=== PATIENT | female | born 1965 | race Caucasian/White ===

== ENCOUNTER 2016-08-09 10:32 | Emergency (ER) | payer SELFPAY ==
[2016-08-09 10:39] VITALS: BP 150/71
--- NOTE | 2016-08-09 11:23 | ED ---
Lower Extremity - HPI Summary HPI Summary: Patient inverted her right ankle and foot 4 weeks ago when her dog knocked her down while running. She didn't have insurance at the time so she babied it and hoped it would improve. The ankle and foot has remained painful with weightbearing and is still swollen. She had bruising over the area which has now resolved. She denies N/T or previous injury. - History of Current Complaint Chief Complaint: EDExtremityLower Stated Complaint: RT FOOT COMPLAINT Time Seen by Provider: 08/09/16 10:53 Hx Obtained From: Patient Mechanism Of Injury: Twisted Onset of Pain: Days Onset/Duration: Still Present - 4 Severity Initially: Moderate Severity Currently: Moderate Pain Intensity: 5 Timing: Constant Location: Is Discrete @ - right ankle/foot Character Of Pain: Dull, Aching, Stiffness Associated Signs And Symptoms: Positive: Swelling Aggravating Factor(s): Standing Alleviating Factor(s): Nothing Able to Bear Weight: Yes - with pain - Allergies/Home Medications Allergies/Adverse Reactions: Allergies Allergy/AdvReac Type Severity Reaction Status Date / Time No Known Allergies Allergy Verified 03/06/14 11:13 PMH/Surg Hx/FS Hx/Imm Hx Endocrine/Hematology History: Denies: Hx Diabetes Cardiovascular History: Denies: Hx Congestive Heart Failure, Hx Hypertension History: Denies: Hx Renal Disease Sensory History: Reports: Hx Contacts or Glasses Opthamlomology History: Reports: Hx Contacts or Glasses Neurological History: Reports: Hx Migraine Psychiatric History: Reports: Hx Depression - Surgical History Surgery Procedure, Year, and Place: HYSTERECTOMY, LEFT SHOULDER FX Infectious Disease History: No Infectious Disease History: Denies: Hx of Known/Suspected MRSA, Hx Shingles, Hx Tuberculosis, History Other Infectious Disease, Traveled Outside the [place] in Last 30 Days - Family History Known Family History: Positive: Other - cancer - Social History Occupation: Unemployed Lives: With Family Alcohol Use: Rare Substance Use Type: Reports: None Smoking Status (MU): Never Smoked Tobacco Review of Systems Positive: Myalgia, Edema Negative: Bruising Negative: Paresthesia, Numbness All Other Systems Reviewed And Are Negative: Yes Physical Exam Triage Information Reviewed: Yes Vital Signs On Initial Exam: Initial Vitals Temp Pulse Resp BP Pulse Ox 98.2 F 70 20 150/71 98 08/09/16 10:36 08/09/16 10:36 08/09/16 10:36 08/09/16 10:36 08/09/16 10:36 Vital Signs Reviewed: Yes Appearance: Positive: Well-Appearing, Well-Nourished, Pain Distress Skin: Positive: Warm, Skin Color Reflects Adequate Perfusion, Dry, Soft Head/Face: Positive: Normal Head/Face Inspection Eyes: Positive: EOMI, JOSEPH, Conjunctiva Clear ENT: Positive: Hearing grossly normal Respiratory/Lung Sounds: Positive: Breath Sounds Present Cardiovascular: Positive: RRR Musculoskeletal: Positive: Limited @ - movement in all planes limited by pain, Pain @ - TTP lateral malleoli, and ATFL, Edema Right - lateral ankle/foot Neurological: Positive: Sensory/Motor Intact, Alert, Oriented to Person Place, Time, NV Bundle Intact Distally, Abnormal Gait Psychiatric: Positive: Affect/Mood Appropriate AVPU Assessment: Alert Diagnostics - Vital Signs Vital Signs Temp Pulse Resp BP Pulse Ox 08/09/16 10:39 98.0 F 71 20 150/71 100 08/09/16 10:36 98.2 F 70 20 150/71 98 - Laboratory Lab Statement: Any lab studies that have been ordered have been reviewed, and results considered in the medical decision making process. - Radiology No standard instances Xray Interpretation: No Acute Changes Radiology Interpretation Completed By: Radiologist Lower Extremity Course/Dx - Diagnoses Differential Diagnosis/HQI/PQRI: Positive: Arthritis, Bursitis, Cellulitis, Contusion, Fracture (Closed), Sprain, Strain Provider Diagnoses: Right ankle sprain Discharge - Discharge Plan Condition: Stable Disposition: HOME Patient Education Materials: Ankle Sprain (ED), Ankle Stirrup Splint (ED) Referrals: No Primary Care Phys,NOPCP [Primary Care Provider] - [facility] [Outside] Additional Instructions: Wear your splint to protect you as your pain improves. Come out of the splint several times daily to perform gentle range of motion exercises to avoid stiffness. Elevate your foot above your heart and apply ice for 20 minutes several times daily to decrease swelling and pain. Use ibuprofen 600mg three times daily with meals for the next 3-5 days to decrease swelling and pain as well. Follow-up with your primary care provider in 7-10 days for evaluation if symptoms persist . Return to the emergency department if your symptoms worsen.
--- NOTE | 2016-08-09 11:44 | RAD ---
INDICATION: Pain and swelling 4 weeks after traumatic injury COMPARISON: None. TECHNIQUE: 3 views of the right ankle were obtained. FINDINGS: The bones are normal alignment. Joint spaces appear maintained. No fracture is seen. IMPRESSION: Normal ankle radiograph. If the patient's symptoms persist, follow-up imaging is recommended.
== END 2016-08-09 12:07 | disposition home or self-care (01) ==
LOC: ED 10:32
DX: S93.401A Sprain of unspecified ligament of right ankle, initial encounter (principal); W54.1XXA Struck by dog, initial encounter; Y93.02 Activity, running; Y92.9 Unspecified place or not applicable; G43.909 Migraine, unspecified, not intractable, without status migrainosus; F32.9 Major depressive disorder, single episode, unspecified; Z90.710 Acquired absence of both cervix and uterus
CPT/HCPCS: 99282

== ENCOUNTER 2017-02-02 12:30 | Emergency (ER) | payer MEDICAID ==
[2017-02-02 12:45] VITALS: BP 150/72
[2017-02-02] MEDS ORDERED: Amoxicillin/Clavulanate TAB* 875 MG PO ONE (13:41)
[2017-02-02] MEDS ORDERED: Ibuprofen TAB* 600 MG PO ONE (13:51)
--- NOTE | 2017-02-02 14:42 | UC ---
Ceferino Neri Gabriel, scribed for Akshat Crespo MD on 02/02/17 at 1338 . Dental HPI - HPI Summary HPI Summary: This patient is a 51 year old F presenting to [facility] with a chief complaint of itching and burning sinuses since 3 days ago. The patient rates the pain 8/10 in severity. Patient reports swelling under right eye and dental pain. Pt states Has had this happen before and has a history of dental issues. - History of Current Complaint Chief Complaint: UCRespiratory Stated Complaint: SWOLLEN FACE, SINUS PRESSURE Time Seen by Provider: 02/02/17 13:32 Hx Obtained From: Patient Onset/Duration: Lasting Days - 3, Still Present Severity: Mild Pain Intensity: 5 Pain Scale Used: 0-10 Numeric Related History: Other - similar issue previously - Allergies/Home Medications Allergies/Adverse Reactions: Allergies Allergy/AdvReac Type Severity Reaction Status Date / Time No Known Allergies Allergy Verified 03/06/14 11:13 PMH/Surg Hx/FS Hx/Imm Hx Previously Healthy: Yes Psychological History: Depression - has been off meds for 3 years - Surgical History Surgical History: Yes Surgery Procedure, Year, and Place: HYSTERECTOMY, LEFT SHOULDER FX - Family History Known Family History: Positive: Other - cancer - Social History Occupation: Unemployed Lives: With Family Alcohol Use: Rare Substance Use Type: None Smoking Status (MU): Never Smoked Tobacco - Immunization History Most Recent Influenza Vaccination: pt unable to recall Most Recent Tetanus Shot: pt unable to recall Most Recent Pneumonia Vaccination: none Review of Systems Constitutional: Negative - fever ENT: Dental Pain, Other - sinus burning and itching, swelling under right eye Is Patient Immunocompromised?: Yes All Other Systems Reviewed And Are Negative: Yes Physical Exam Triage Information Reviewed: Yes Appearance: Well-Appearing, No Pain Distress Vital Signs: Initial Vital Signs Temp 98.6 F 02/02/17 12:42 Pulse 74 02/02/17 12:42 Resp 18 02/02/17 12:42 BP 150/72 02/02/17 12:42 Pulse Ox 99 02/02/17 12:42 Vital Signs Reviewed: Yes Eyes: Positive: Conjunctiva Clear ENT: Positive: Pharynx normal, Other - the patient's right face is with some cellulitis and erythema. No orbital involvement. EOMI without any pain. EYELIDS NORMAL.. Negative: Nasal congestion, Tonsillar swelling, Muffled voice , Hoarse voice Dental: Positive: Abscess @ - Teeth number 1 and 4 right upper with abscess and gingival swelling, tenderness. Dental Complaint Course/Dx - Course Course Of Treatment: 51 yr old with dental abscess, facial swelling/cellulitis. She has gone to [facility] before. Rx with augmentin. DC home. FU with dental. TO ER for any worse swelling, eye pain. - Differential Dx/Diagnosis Provider Diagnoses: dental abscess. facial cellulitis. hypertension Discharge - Discharge Plan Condition: Good Disposition: HOME Prescriptions: Amoxicillin/Clavulanate TAB* [Augmentin TAB 875*] 875 mg PO BID #20 tab Ibuprofen TAB* [Motrin TAB* 600 MG] 600 mg PO Q6H PRN #20 tab PRN Reason: Pain Patient Education Materials: Dental Abscess (ED), Cellulitis (ED), Hypertension (ED), Periorbital Cellulitis in Adults (ED) Referrals: No Primary Care Phys,NOPCP [Primary Care Provider] - [facility] [place] [facility] [Outside] Additional Instructions: [facility] [place] Website Directions [phone] [employer] Dental clinic in [place], [place] Located in: [facility] Address: [address], [place] [address] Hours: Open today 8AM5PM The documentation as recorded by the Ceferino holt Gabriel accurately reflects the service I personally performed and the decisions made by me, Akshat Crespo MD.
== END 2017-02-02 14:02 | disposition home or self-care (01) ==
LOC: UCEAST 12:30
DX: K04.7 Periapical abscess without sinus (principal); L03.211 Cellulitis of face; I10 Essential (primary) hypertension
CPT/HCPCS: 99212; A9270-GY; G0463

== ENCOUNTER 2017-05-28 20:46 | Emergency (ER) | payer MEDICAID, OTHER ==
[2017-05-28 20:58] VITALS: BP 159/95
--- NOTE | 2017-05-28 21:47 | RAD ---
INDICATION: Chest pain COMPARISON: August 28, 2011 TECHNIQUE: PA and lateral dual-energy views were obtained. FINDINGS: Bones/Soft Tissues: There are no acute bony findings. Cardiomediastinal: The cardiomediastinal silhouette is normal. Lungs: There are no infiltrates. Pleura: There are no pleural effusions. Other: None IMPRESSION: NO ACTIVE DISEASE.
--- NOTE | 2017-05-28 21:50 | UC ---
Cardiac HPI - HPI Summary HPI Summary: 52 yo WF c/o B/L ear fullness associated with sinus fullness and ear congestion , also c/o chest pressure and numbness on left arm and it is on and off not constant. Denies h/o HTN or CAD, hyperchol - History of Current Complaint Chief Complaint: UCRespiratory Stated Complaint: EARS PLUGGED, CHEST CONGESTION Time Seen by Provider: 05/28/17 20:57 Hx Obtained From: Patient Onset/Duration: Sudden Onset Current Severity: Moderate Pain Intensity: 3 - Allergy/Home Medications Allergies/Adverse Reactions: Allergies Allergy/AdvReac Type Severity Reaction Status Date / Time No Known Allergies Allergy Verified 05/28/17 20:58 PMH/Surg Hx/FS Hx/Imm Hx Previously Healthy: Yes - Surgical History Surgical History: Yes Surgery Procedure, Year, and Place: HYSTERECTOMY, LEFT SHOULDER FX - Family History Known Family History: Positive: Other - cancer - Social History Alcohol Use: Rare Substance Use Type: None Smoking Status (MU): Former Smoker - Immunization History Most Recent Influenza Vaccination: pt unable to recall Most Recent Tetanus Shot: pt unable to recall Most Recent Pneumonia Vaccination: none Review of Systems Constitutional: Negative Skin: Negative Eyes: Negative ENT: Ear Ache, Sinus Pain/Tenderness Respiratory: Negative Cardiovascular: Negative Gastrointestinal: Negative Genitourinary: Negative Motor: Negative Neurovascular: Negative Musculoskeletal: Negative Neurological: Negative Psychological: Negative All Other Systems Reviewed And Are Negative: Yes Physical Exam Triage Information Reviewed: Yes Appearance: No Pain Distress Vital Signs: Initial Vital Signs Temp 36.3 C 05/28/17 20:50 Pulse 78 05/28/17 20:50 Resp 18 05/28/17 20:50 BP 159/95 05/28/17 20:50 Pulse Ox 99 05/28/17 20:50 Eye Exam: Normal ENT: Positive: Hearing grossly normal, TM red - R>L, Sinus tenderness. Negative : Pharyngeal erythema, Nasal congestion Dental Exam: Normal Neck exam: Normal Neck: Positive: 1 Respiratory: Positive: Lungs clear, No respiratory distress Cardiovascular: Positive: RRR Abdominal Exam: Normal Musculoskeletal Exam: Normal Neurological Exam: Normal Psychological Exam: Normal Skin Exam: Normal - Assessment/Plan Course Of Treatment: CXR neg for infiltrates, EKG WNL, CP suspected to be non- cardiac and arm numbness may be unrelated to current CP. will tx for OM - Differential Diagnoses - Chest Pain Differential Diagnosis/HQI/PQRI: Acute SD, ACS, Chest Wall, GI Disease, Lower Respiratory Infection - Clinical Impression Provider Diagnoses: OM, chestwall pain Discharge - Sign-Out/Discharge Documenting (check all that apply): Discharge - Discharge Plan Condition: Stable Disposition: HOME Prescriptions: Amoxicillin/Clavulanate TAB* [Augmentin TAB 875*] 875 mg PO BID 10 Days #20 tab Referrals: No Primary Care Phys,NOPCP [Primary Care Provider] - - Billing Disposition and Condition Condition: STABLE Disposition: HOME
[2017-05-28] MEDS ORDERED: Amoxicillin/Clavulanate TAB* 500 MG PO ONE (22:03)
== END 2017-05-28 22:15 | disposition home or self-care (01) ==
LOC: UCEAST 20:46
DX: H66.93 Otitis media, unspecified, bilateral (principal); R07.89 Other chest pain; Z87.891 Personal history of nicotine dependence
CPT/HCPCS: 71046; 93005; 99212; A9270-GY; G0463

== ENCOUNTER 2018-10-04 12:40 | Emergency (ER) | payer SELFPAY ==
[2018-10-04 14:38] LABS: ABS Eosinophils 0.5 10^3/ul (0-0.6); ABS Lymphocytes 3.4 10^3/ul (1.0-4.8); ABS Monocytes 0.4 10^3/ul (0-0.8); ABS Neutrophils 3.1 10^3/ul (1.5-7.7); Eosinophil % 7.1 %; Hematocrit 37 % (35-47); Hemoglobin 12.8 g/dL (12.0-16.0); Mean Corpuscular HGB Conc 34 g/dL (31-36); Mean Corpuscular Hemoglobin 32 pg (27-31); Mean Corpuscular Volume 93 fL (80-97); Mean Platelet Volume 8.3 fL (7.4-10.4); Nucleated Red Blood Cells % 0.1; Platelet Count 287 10^3/uL (150-450); Red Blood Count 3.98 10^6 /uL (3.70-4.87); Red Cell Distribution Width 14 % (10-15); White Blood Count 7.6 10^3/uL (3.5-10.8)
--- NOTE | 2018-10-04 14:44 | ED ---
HPI Chest Pain - HPI Summary HPI Summary: This patient is a 53-year-old female presenting to the ED with acute onset chest tightness to the midsternal region which is nonradiating which occurred approximately 2 hours ago when she was cleaning [place] [facility] She denies any radiation of pain. Denies any diaphoresis. Denies any jaw pain or neck pain. She states she had elevated troponins approximate 4 years ago due to some abdominal discomfort, was in the hospital for 4 days and states they did not find anything. She states symptoms currently are rated a 2/10, previously a 6/10. She denies any back pain. Denies any abdominal pain. Denies any headache, visual changes. Symptoms are not worse or better with sitting upright or lying flat, however she does notice a difference when flexing her neck. - History of Current Complaint Chief Complaint: EDChestPainROMI Time Seen by Provider: 10/04/18 14:04 Hx Obtained From: Patient Onset/Duration: Started Hours Ago Timing: Constant Initial Severity: Moderate Current Severity: Moderate Pain Intensity: 7 Pain Scale Used: 0-10 Numeric Chest Pain Location: Mid Sternal Chest Pain Radiates: No Aggravating Factor(s): Nothing Alleviating Factor(s): Nothing Associated Signs and Symptoms: Positive: Negative - Risk Factors Pulmonary Embolism Risk Factors: Negative TAD Risk Factors: Negative - Allergy/Home Medications Allergies/Adverse Reactions: Allergies Allergy/AdvReac Type Severity Reaction Status Date / Time No Known Allergies Allergy Verified 05/28/17 20:58 PMH/Surg Hx/FS Hx/Imm Hx Previously Healthy: Yes Endocrine/Hematology History: Denies: Hx Diabetes Cardiovascular History: Denies: Hx Congestive Heart Failure, Hx Hypertension History: Denies: Hx Renal Disease Sensory History: Reports: Hx Contacts or Glasses Opthamlomology History: Reports: Hx Contacts or Glasses Neurological History: Reports: Hx Migraine Psychiatric History: Reports: Hx Depression - Surgical History Surgery Procedure, Year, and Place: HYSTERECTOMY, LEFT SHOULDER FX - Immunization History Hx Pertussis Vaccination: No Immunizations Up to Date: Yes Infectious Disease History: No Infectious Disease History: Denies: Hx of Known/Suspected MRSA, Hx Shingles, Hx Tuberculosis, History Other Infectious Disease, Traveled Outside the [place] in Last 30 Days - Family History Known Family History: Positive: Other - cancer - Social History Occupation: Employed Full-time Lives: With Family Alcohol Use: Rare Hx Substance Use: No Substance Use Type: Reports: None Hx Tobacco Use: No Smoking Status (MU): Former Smoker Review of Systems Negative: Fever, Chills, Fatigue, Skin Diaphoresis Negative: Blurred Vision, Diplopia Positive: Chest Pain. Negative: Palpitations Negative: Shortness Of Breath, Cough Negative: Arthralgia Skin: Negative Neurological: Negative All Other Systems Reviewed And Are Negative: Yes Physical Exam Triage Information Reviewed: Yes Vital Signs On Initial Exam: Initial Vitals Temp Pulse Resp BP Pulse Ox 98.4 F 76 16 150/75 100 10/04/18 12:45 10/04/18 12:45 10/04/18 12:45 10/04/18 12:45 10/04/18 12:45 Vital Signs Reviewed: Yes Appearance: Positive: Well-Appearing, Well-Nourished Skin: Positive: Warm, Skin Color Reflects Adequate Perfusion Head/Face: Positive: Normal Head/Face Inspection Eyes: Positive: EOMI, Conjunctiva Clear Neck: Positive: Supple Respiratory/Lung Sounds: Positive: Clear to Auscultation, Breath Sounds Present Musculoskeletal: Positive: Strength/ROM Intact, Other - flexion of the neck worsens the pain - palpation throughout the chest wall worsens the pain, no worsening sxs with arm movement Neurological: Positive: Speech Normal Psychiatric: Positive: Normal, Affect/Mood Appropriate AVPU Assessment: Alert Diagnostics - Vital Signs Vital Signs Temp Pulse Resp BP Pulse Ox 10/04/18 12:45 98.4 F 76 16 150/75 100 - Laboratory Lab Results: Lab Results 10/04/18 Range/Units 14:15 WBC 7.6 (3.5-10.8) 10^3/uL RBC 3.98 (3.70-4.87) 10^6 /uL Hgb 12.8 (12.0-16.0) g/dL Hct 37 (35-47) % MCV 93 (80-97) fL MCH 32 H (27-31) pg MCHC 34 (31-36) g/dL RDW 14 (10-15) % Plt Count 287 (150-450) 10^3/uL MPV 8.3 (7.4-10.4) fL Neut % (Auto) 41.5 % Lymph % (Auto) 45.0 % Christian % (Auto) 5.8 % Eos % (Auto) 7.1 % Baso % (Auto) 0.6 % Absolute Neuts (auto) 3.1 (1.5-7.7) 10^3/ul Absolute Lymphs (auto) 3.4 (1.0-4.8) 10^3/ul Absolute Monos (auto) 0.4 (0-0.8) 10^3/ul Absolute Eos (auto) 0.5 (0-0.6) 10^3/ul Absolute Basos (auto) 0.0 (0-0.2) 10^3/ul Absolute Nucleated RBC 0.0 10^3/ul Nucleated RBC % 0.1 Result Diagrams: 10/04/18 14:15 10/04/18 14:15 Lab Statement: Any lab studies that have been ordered have been reviewed, and results considered in the medical decision making process. Chest Pain Course/Dx - Course Course Of Treatment: Treatment, the patient is evaluated for mid sternal chest pain which is nonradiating. She denies any back pain. Denies any headache, visual changes. Denies any fevers, sweats, chills. Symptoms began approximately 3 hours ago and it remained constant, however now dissipated from a 6/10 to a 2/10 on reexamination. Patient denies cardiac disease. Endorses a "tightening" to the midsternal chest. Labs obtained and are unremarkable including a troponin of 0.00. Chest x-ray obtained which shows no acute cardiopulmonary disease. Normal sinus rhythm with no EKG changes. On reexamination, patient is asymptomatic and states she is okay for discharge at this time. Sxs seem to be more muscular as pain is worsened with neck flexion and on slight palpation. She is low risk for Mace, patient will be discharged with close follow-up with her PCP. Patient states she will call her PCP tomorrow for good follow-up. - Chest Pain Differential Diagnosis/HQI/PQRI: Angina, Other: - angina, chest wall pain - Diagnoses Provider Diagnoses: Chest pain Discharge - Sign-Out/Discharge Documenting (check all that apply): Patient Departure Patient Received Moderate/Deep Sedation with Procedure: No - Discharge Plan Condition: Stable Disposition: HOME Patient Education Materials: Angina (ED) Referrals: No Primary Care Phys,NOPCP [Primary Care Provider] - Additional Instructions: As discussed, all your labs and xray on today's visit looked OK Please follow up with PCP If you develop any worsening or changing symptoms, return to the ED - Billing Disposition and Condition Condition: STABLE Disposition: Home
[2018-10-04 14:48] LABS: Albumin/Globulin Ratio 1.4 (1-3); BUN/Creatinine Ratio 19.1 (8-20); EGFR African American 79.7 (>60); EGFR Non-African American 65.8 (>60); Globulin 2.9 g/dL (2-4); Potassium 3.6 mmol/L (3.5-5.0); Total Bilirubin 0.3 mg/dL (0.2-1.0); Total Protein 6.9 g/dL (6.4-8.9)
[2018-10-04 14:55] LABS: INR 0.97 (0.82-1.09)
[2018-10-04 15:41] VITALS: BP 163/84
== END 2018-10-04 15:39 | disposition home or self-care (01) ==
LOC: ED 12:40
DX: R07.9 Chest pain, unspecified (principal); F32.9 Major depressive disorder, single episode, unspecified; Z87.891 Personal history of nicotine dependence
CPT/HCPCS: 36415; 71046; 80053; 84484; 85025; 85610; 93005; 99282

== ENCOUNTER 2019-01-09 17:51 | Emergency (ER) | payer SELFPAY ==
[2019-01-09 18:09] VITALS: BP 153/74
[2019-01-09] MEDS ORDERED: Acetaminophen TAB* 325 MG PO ONE (18:12)
[2019-01-09] MEDS ORDERED: Albuterol/Ipratropium NEB.SOL* Albuterol 2.5 MG/Ipratropium 0.5 MG 3 ML INH ONE (18:34)
--- NOTE | 2019-01-09 18:44 | UC ---
General HPI - HPI Summary HPI Summary: Patient is a 53-year-old female who presents to urgent care stating yesterday she had a little sinus congestion. Patient works as environmental services at the hospital. Patient states she worked today when she was driving home she started to feel unwell. Patient states she had mild nausea, no vomiting. Patient states she developed body aches. Patient states she felt very fatigued. Patient states when she takes a deep breath she felt like it was tight in her chest. No chest pain or shortness of breath at rest. No rash. Mild congestion her sinuses and postnasal drip. Patient did not take anything for her symptoms went home when she did feel better to him here. Patient states she did get the flu shot this year. Patient intermittently smoke cigarettes. Patient denies sick contacts at home. Patient's medications review this visit. She does not take any prescribed or [id number]. no htn, hld, dm - History of Current Complaint Chief Complaint: UCAbdominalPain Stated Complaint: CONGESTED Time Seen by Provider: 01/09/19 18:10 Hx Obtained From: Patient, Medical Records Onset Severity: Moderate Current Severity: Moderate Pain Intensity: 7 - Allergy/Home Medications Allergies/Adverse Reactions: Allergies Allergy/AdvReac Type Severity Reaction Status Date / Time No Known Allergies Allergy Verified 01/09/19 18:09 PMH/Surg Hx/FS Hx/Imm Hx Previously Healthy: Yes - Surgical History Surgical History: Yes Surgery Procedure, Year, and Place: HYSTERECTOMY, LEFT SHOULDER FX - Family History Known Family History: Positive: Other - cancer - Social History Occupation: Employed Full-time Lives: With Family Alcohol Use: Rare Substance Use Type: None Smoking Status (MU): Former Smoker - Immunization History Most Recent Influenza Vaccination: pt unable to recall Most Recent Tetanus Shot: pt unable to recall Most Recent Pneumonia Vaccination: none Review of Systems All Other Systems Reviewed And Are Negative: Yes Constitutional: Positive: Fever, Fatigue Skin: Positive: Negative Eyes: Positive: Negative ENT: Positive: Sinus Congestion Respiratory: Positive: Other - tight with deep breath only Cardiovascular: Positive: Negative Gastrointestinal: Positive: Nausea. Negative: Diarrhea Genitourinary: Positive: Negative Is Patient Immunocompromised?: No Physical Exam - Summary Physical Exam Summary: Vital Signs Reviewed: Yes A+Ox3, no distress Eyes: Conjunctiva Clear, JOSEPH. EOM intact and full ENT: Hearing grossly normal TM x 2 clear, mmoist, uvula midline, no exudate, no erythema Neck: Positive: Supple Respiratory: Positive: No respiratory distress, No accessory muscle use + CTA throughout mild end exp wheeze Cardiovascular: RRR nl s1, s2 no m/r CBT <2 sec abd soft + BS nt/nd no guarding, no distension, no CVA Musculoskeletal Exam: ROBERTSON x 4 without difficulty Strength Intact, ROM Intact Neurological: Positive: Alert, + sensation throughout Psychological: Positive: Normal Response To examiner Skin: Positive: no rash, no ecchymosis Triage Information Reviewed: Yes Vital Signs: Initial Vital Signs Temp 102 F 01/09/19 18:01 Pulse 88 01/09/19 18:01 Resp 16 01/09/19 18:01 BP 153/74 01/09/19 18:01 Pulse Ox 97 01/09/19 18:01 Diagnostics - Radiology No standard instances Radiology Interpretation Completed By: ED Physician - RLL infiltrate - early - EKG Cardiac Rate: NL Cardiac Rhythm: Sinus: Normal ST Segment: Normal EKG Comparison: No Significant Change - 09/2018 Re-Evaluation - Re-Evaluation First Eval Change: Improved - Patient markedly improved following nebulizer. States she's not has tightness. Has releases gone. Did review chest x-ray patient. Concern for early evolving right lower lobe pneumonia. Review this with patient aware we are doing the morning pain was her patient on doxycycline. MDI given here patient has used in the past. Work note written. Patient also given contact information for patchy and encouraged to schedule follow-up. Patient given strict return precautions which is [facility] if symptoms change or worsen. Course/Dx - Course Course Of Treatment: Patient presents to urgent care stating development of mild sinus congestion yesterday. Patient states today she only started to feel ill. Patient H was nauseous had some body aches. Patient I shortness of breath but with a deep inspiration feels tight in her chest. Otherwise patient without chest pain or shortness of breath. No nausea or vomiting. No wheezing. Patient is on no prescribed medications. Vital signs show fever of 102. Patient did not take anything for her temperature today. Otherwise none exam mild and expiratory wheezing but not concerning nontoxic. Will check chest x-ray, urine, EKG was reviewed and non-concerning and influenza. It was compared to one in September with no acute changes. We'll give a DuoNeb and reassessed. Patient comfortable with the plan. Of note, patient did report to the triage nurse that she had angina diagnosed in the ED in September. Review of this record patient had a negative troponin was sent home. Patient did not have any, cardiac evaluation or follow-up with her PCP. Patient denies any exertional chest pain or recurrence since that time she was in the emergency department. - Diagnoses Provider Diagnosis: Fever, PNA (pneumonia) Discharge ED - Sign-Out/Discharge Documenting (check all that apply): Patient Departure All imaging exams completed and their final reports reviewed: No - Discharge Plan Condition: Stable Disposition: HOME Prescriptions: DOXYcycline CAP(*) [DOXYcycline 100MG CAP(*)] 100 mg PO BID #19 cap Patient Education Materials: Fever in Adults (ED), Pneumonia (ED) Forms: *Gen. Provider Communication, *Work Release Referrals: No Primary Care Phys,NOPCP [Primary Care Provider] - [facility] [place] [facility] REFERRAL [Outside] Additional Instructions: -Okay to alternate ibuprofen (Advil, Motrin) and Tylenol (acetaminophen) every 3 hours for pain or fever. Take with food. Do NOT take for more than 4-5 days. - Stay well hydrate. Drink plenty of non alcoholic, non caffeinated beverages. - Plenty of restful sleep - Take antibiotics 2 times a day as prescribed - Use your inhaler - 2 puffs every 4 hours today and tomorrow, then every 4 hours as needed for wheezing - Okay to take [id number] cough and cold medications - Work to decrease cigarette smoke - Contact your primary care doctor to schedule follow-up appointment. If he doesn't have a primary care doctor contact the physician referral center tomorrow to schedule follow-up appointment - If your symptoms change, he developed chest pain, he developed shortness of breath, he unable to control your fever, you have uncontrollable vomiting, or any other concerns is recommended to go immediately to emergency department for further evaluation. You can always call 911 for transfer to emergency department. As discussed, your radiograph was reviewed by the provider that treated you tonight. It will be read by a radiologist tomorrow morning. - Billing Disposition and Condition Condition: STABLE Disposition: Home
[2019-01-09 18:53] LABS: Influenza A Molecular NEGATIVE (Negative); Influenza B Molecular NEGATIVE (Negative)
[2019-01-09] MEDS ORDERED: DOXYcycline CAP(*) 100 MG PO ONE (19:10)
[2019-01-09] MEDS ORDERED: Albuterol HFA INHALER* 8 gm MDI INH ONE (19:11)
--- NOTE | 2019-01-10 08:21 | UC ---
- Progress Note Progress Note: Reviewed record: started doxycycline yesterday for treatment of RLL pneumonia per wet read. Per Dr. Gregorio: lungs with hyperinflation. Please let patient know that no pneumonia diagnosed by chest xray but should continue full course of antibiotic treatment. Patient Name: DELORIS SALDANA Medical Record#: [id number] Ordering Physician: Ivonne Vernon MD Acct.#: [id number] : 1965 Age: 53 Sex: F Location: [facility] Exam Date: 01/09/191833 ADM Status: DEP ER Order Information: CHEST PA & LAT 2 VWS Accession Number: [id number] CPT: 34517 HISTORY: cough, fever COMPARISONS: October 04, 2018 VIEWS: 4: Frontal dual-energy and lateral views of the chest. FINDINGS: CARDIOMEDIASTINAL SILHOUETTE: The cardiomediastinal silhouette is normal. OSWALDO: The oswaldo are normal. PLEURA: The costophrenic angles are sharp. No pleural abnormalities are noted. LUNG PARENCHYMA: There is hyperinflation with flattening of the diaphragm and expansion of the AP diameter of the chest. The "early right lower lobe pneumonia" noted on the preliminary assessment is not appreciated on the submitted images. ABDOMEN: The upper abdomen is clear. There is no subphrenic gas. BONES AND SOFT TISSUES: No bone or soft tissue abnormalities are noted. OTHER: None. IMPRESSION: HYPERINFLATION. NO ACTIVE CARDIOPULMONARY DISEASE. R2 Preliminary Imaging Read R2 <Electronically signed by Wing Gregorio MD in [place]> 01/10/19742 Dictated By: Wing Gregorio MD Dictated Date/Time: 01/10/19740 Transcribed Date/Time: 01/10/19740 Copy to: CC:Ivonne Vernon MD; No Primary Care Phys,NOPCP Imaging - [facility] Imaging - [facility] Imaging - [facility] [address] [address] This report is only to be considered final once signed by the Provider(s) as displayed in the "<Electronically Signed by >" field (s). Absence of a signature indicates the report is in a draft status and still needs to be finalized. In the event this document was created by someone other than the signing Provider, the individual initiating the document will be listed in the "Entered by:" or "Dictated by:" harrison. 1 of 2 Course/Dx - Diagnoses Provider Diagnoses: Fever, PNA (pneumonia) Discharge ED - Sign-Out/Discharge Documenting (check all that apply): Post-Discharge Follow Up All imaging exams completed and their final reports reviewed: Yes - Discharge Plan Condition: Stable Disposition: HOME Prescriptions: DOXYcycline CAP(*) [DOXYcycline 100MG CAP(*)] 100 mg PO BID #19 cap Patient Education Materials: Fever in Adults (ED), Pneumonia (ED) Forms: *Gen. Provider Communication, *Work Release Referrals: [facility] [place] [facility] REFERRAL [Outside] No Primary Care Phys,NOPCP [Primary Care Provider] - Additional Instructions: -Okay to alternate ibuprofen (Advil, Motrin) and Tylenol (acetaminophen) every 3 hours for pain or fever. Take with food. Do NOT take for more than 4-5 days. - Stay well hydrate. Drink plenty of non alcoholic, non caffeinated beverages. - Plenty of restful sleep - Take antibiotics 2 times a day as prescribed - Use your inhaler - 2 puffs every 4 hours today and tomorrow, then every 4 hours as needed for wheezing - Okay to take [id number] cough and cold medications - Work to decrease cigarette smoke - Contact your primary care doctor to schedule follow-up appointment. If he doesn't have a primary care doctor contact the physician referral center tomorrow to schedule follow-up appointment - If your symptoms change, he developed chest pain, he developed shortness of breath, he unable to control your fever, you have uncontrollable vomiting, or any other concerns is recommended to go immediately to emergency department for further evaluation. You can always call 911 for transfer to emergency department. As discussed, your radiograph was reviewed by the provider that treated you tonight. It will be read by a radiologist tomorrow morning. - Billing Disposition and Condition Condition: STABLE Disposition: Home
== END 2019-01-09 19:24 | disposition home or self-care (01) ==
LOC: UCEAST 17:51
DX: J18.9 Pneumonia, unspecified organism (principal); R50.9 Fever, unspecified; R91.8 Other nonspecific abnormal finding of lung field; Z87.891 Personal history of nicotine dependence
CPT/HCPCS: 71046; 81003; 93005; 99213; A9270-GY; G0463

== ENCOUNTER 2019-01-23 11:36 | Emergency (ER) | payer SELFPAY ==
[2019-01-23 12:09] VITALS: BP 166/91
[2019-01-23] MEDS ORDERED: Ketorolac INJ* 30 MG/ML 1 ML VIAL IM ONE (12:32)
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
== END 2019-01-23 12:50 | disposition home health service (06) ==
LOC: UCEAST 11:36
DX: L03.211 Cellulitis of face (principal); I10 Essential (primary) hypertension; F17.210 Nicotine dependence, cigarettes, uncomplicated
CPT/HCPCS: 96372; 99212; G0463; J1885

== ENCOUNTER 2019-01-23 13:37 | Emergency (ER) | payer SELFPAY ==
--- NOTE | 2019-01-23 13:56 | ED ---
Throat Pain/Nasal Congestion - HPI Summary HPI Summary: 53-year-old female significant past medical history of angina reports the emergency department today complaining of right facial swelling which began this morning. She states she began having mild swelling and pain yesterday below her right eye but when she awoke this morning she noticed significant swelling below her right eye as well as swelling to her right cheek. She states she had 10 out of 10 pain this morning when she decided to go to urgent care. She was sent from urgent care to here in order to have a CT scan done to rule out pathology. Prior to Arrival she was given IM Toradol at urgent care which significantly reduced her pain. She denies fever, chest pain, chills, abdominal pain, trouble swallowing, dental pain, changes in vision, ear pain, diarrhea, nausea, vomiting, rash. - History of Current Complaint Chief Complaint: EDDentalPain Time Seen by Provider: 01/23/19 13:38 Hx Obtained From: Patient Onset/Duration: Gradual Onset Severity: Severe Associated Signs And Symptoms: Positive: Sinus Discomfort Cough: None - Allergies/Home Medications Allergies/Adverse Reactions: Allergies Allergy/AdvReac Type Severity Reaction Status Date / Time No Known Allergies Allergy Verified 01/23/19 12:08 PMH/Surg Hx/FS Hx/Imm Hx Endocrine/Hematology History: Denies: Hx Diabetes, Hx Thyroid Disease Cardiovascular History: Reports: Other Cardiovascular Problems/Disorders - angina Denies: Hx Congestive Heart Failure, Hx Hypertension Respiratory History: Denies: Hx Asthma, Hx Chronic Obstructive Pulmonary Disease (COPD) GI History: Denies: Hx Ulcer History: Denies: Hx Renal Disease Sensory History: Reports: Hx Contacts or Glasses Opthamlomology History: Reports: Hx Contacts or Glasses Neurological History: Reports: Hx Migraine Psychiatric History: Reports: Hx Depression - Surgical History Surgery Procedure, Year, and Place: HYSTERECTOMY, LEFT SHOULDER FX - Immunization History Date of Influenza Vaccine: 11/2018 Immunizations Up to Date: Yes Infectious Disease History: No Infectious Disease History: Denies: Hx Hepatitis, Hx Human Immunodeficiency Virus (HIV), Hx of Known/ Suspected MRSA, Hx Shingles, Hx Tuberculosis, History Other Infectious Disease, Traveled Outside the [place] in Last 30 Days - Family History Known Family History: Positive: Other - cancer - Social History Alcohol Use: Rare Hx Substance Use: No Substance Use Type: Reports: None Hx Tobacco Use: Yes Smoking Status (MU): Heavy Every Day Tobacco Smoker Amount Used/How Often: a few cig per day Review of Systems Constitutional: Negative Eyes: Negative ENT: Negative Cardiovascular: Negative Respiratory: Negative Gastrointestinal: Negative Genitourinary: Negative Positive: other Skin: Negative Neurological: Negative Psychological: Normal All Other Systems Reviewed And Are Negative: Yes Physical Exam - Summary Physical Exam Summary: Inspection reveals significant swelling to the right cheek and inferior to the right eye in the area of the tear duct. There is erythema noted overlying the tear duct as well as the right cheek. Palpation reveals soft nontender areas of edema to the right side of the face. There is no significant increase in warmth to the skin on the right side of the face. EOMI is intact and she has no pain with extraocular muscle movement. There is no discharge noted from the tear duct or nares bilaterally. No tenderness with percussion of frontal and maxillary sinuses. Triage Information Reviewed: Yes Vital Signs On Initial Exam: Initial Vitals Temp Pulse Resp BP Pulse Ox 97.4 F 75 16 156/98 99 01/23/19 13:39 01/23/19 13:39 01/23/19 13:39 01/23/19 13:39 01/23/19 13:39 Vital Signs Reviewed: Yes Appearance: Positive: Well-Appearing, No Pain Distress, Well-Nourished Skin: Positive: Warm, Skin Color Reflects Adequate Perfusion Eyes: Positive: EOMI, JOSEPH, Conjunctiva Clear ENT: Positive: Hearing grossly normal, Pharynx normal, TMs normal Dental: Positive: Other - Dentition in poor repair with significant erosion.. Negative: Percussion Tenderness @ Neck: Positive: Nontender Respiratory/Lung Sounds: Positive: Clear to Auscultation, Breath Sounds Present Cardiovascular: Positive: RRR, S1, S2 Abdomen Description: Positive: Soft Bowel Sounds: Positive: Present Musculoskeletal: Positive: Strength/ROM Intact Neurological: Positive: Sensory/Motor Intact, Alert, Oriented to Person Place, Time, Normal Gait, Speech Normal Psychiatric: Positive: Normal AVPU Assessment: Alert Procedures - Sedation Patient Received Moderate/Deep Sedation with Procedure: No Diagnostics - Vital Signs Vital Signs Temp Pulse Resp BP Pulse Ox 01/23/19 13:39 97.4 F 75 16 156/98 99 - Laboratory Result Diagrams: 01/23/19 14:33 01/23/19 14:33 Lab Statement: Any lab studies that have been ordered have been reviewed, and results considered in the medical decision making process. EENT Course/Dx - Course Course Of Treatment: Patient was evaluated in the emergency department today for right-sided facial pain. Patient was seen and examined her vitals are stable and she is afebrile. Labs returned showing leukocytosis with a white blood cell count of 15.1. There is a left shift with an absolute count of 12.7. CRP is 11.00 which is elevated. No evidence of anemia. Patient is mildly hypokalemic with a potassium 3.3 however all other electrolytes are within normal limits. CT of the sinuses reveals right facial cellulitis centered about the right buccal fat pad with extension to the right malar eminence and a right inferior eyelid. There is no orbital inflammation. There is no drainable fluid collection identified. The oral cavity is partially endentulous. Untreated dental or periodontal disease involves nearly every remaining maxillary tooth. The mandibular teeth are poorly imaged. Moderate paranasal sinus mucosal thickening predominating along the anterior drainage pathways bilaterally. The right maxillary disease is likely odontogenic. CT scan and lab studies are consistent with right facial cellulitis likely caused from dental infection. Patient was given 1 g of IM ceftriaxone and 1 dose of Augmentin 875 here in the emergency department. She is also given a prescription for Augmentin 875 twice a day 7 days to be taken as an outpatient. She is to take ibuprofen for pain. She is to follow-up with a dentist for evaluation of this dental infection. Patient agrees with this plan. - Differential Diagnoses Differential Diagnoses: Cellulitis, Dental Caries, Gingivitis, Periorbital/ Orbital Cellulitis, Sinusitis, Other - Dacryocystitis, dacryoadenitis - Diagnoses Provider Diagnoses: Cellulitis of face, Dental infection Discharge ED - Sign-Out/Discharge Documenting (check all that apply): Patient Departure - Discharge Plan Condition: Stable Disposition: HOME Prescriptions: Amoxicillin/Clavulanate TAB* [Augmentin TAB 875*] 875 mg PO BID #14 tab Patient Education Materials: Dental Abscess (ED), Cellulitis (ED) Referrals: No Primary Care Phys,NOPCP [Primary Care Provider] - Care [facility] [Outside] - 2 Days Additional Instructions: You were seen in the emergency department and diagnosed with facial cellulitis likely due to a dental infection. You were Given a dose of antibiotics in the emergency department, but please go to your pharmacy and [employer] your prescription for antibiotics. Take one tablet of Augmentin 875 mg every 12 hours for 7 days for resolution of your infection. It is very important that you follow up with a dentist to be able to drain possible dental abscess which likely caused a facial cellulitis. You may take ibuprofen for pain as needed 600 mg every 6 hours for one week. Please follow-up with with your primary care provider or [facility] if you are unable to get into see a dentist. Please return to the emergency department immediately if you develop any new or worsening symptoms. I have attached information for dental care referrals. - Billing Disposition and Condition Condition: STABLE Disposition: Home
[2019-01-23 14:40] LABS: ABS Eosinophils 0.1 10^3/ul (0-0.6); ABS Lymphocytes 1.7 10^3/ul (1.0-4.8); ABS Monocytes 0.5 10^3/ul (0-0.8); ABS Neutrophils 12.7 10^3/ul (1.5-7.7); Eosinophil % 0.9 %; Hematocrit 39 % (35-47); Hemoglobin 13.4 g/dL (12.0-16.0); Lymphocyte % 11.1 %; Mean Corpuscular HGB Conc 34 g/dL (31-36); Mean Corpuscular Hemoglobin 32 pg (27-31); Mean Corpuscular Volume 93 fL (80-97); Mean Platelet Volume 7.9 fL (7.4-10.4); Platelet Count 278 10^3/uL (150-450); Red Blood Count 4.22 10^6 /uL (3.70-4.87); Red Cell Distribution Width 13 % (10-15); White Blood Count 15.1 10^3/uL (3.5-10.8)
[2019-01-23] MEDS ORDERED: cefTRIAXone(*) 1 GM in NS 0.9% 50 ML* 50 ML IVPB ONE (14:54)
[2019-01-23] MEDS ORDERED: Amoxicillin/Clavulanate TAB* 875 MG PO ONE (14:55)
[2019-01-23 14:58] LABS: Albumin 4.1 g/dL (3.2-5.2); Albumin/Globulin Ratio 1.2 (1-3); BUN/Creatinine Ratio 12.2 (8-20); Calcium 9.4 mg/dL (8.6-10.3); EGFR African American 87.6 (>60); EGFR Non-African American 72.4 (>60); Globulin 3.4 g/dL (2-4); Potassium 3.3 mmol/L (3.5-5.0); Total Bilirubin 0.4 mg/dL (0.2-1.0); Total Protein 7.5 g/dL (6.4-8.9)
[2019-01-23] MEDS ORDERED: cefTRIAXone VIAL(*) 1,000 MG VIAL IM ONE (15:15)
[2019-01-23] MEDS ORDERED: Lidocaine 1% MPF ** 5 ML VIAL IM ONE (15:15)
[2019-01-23] MEDS ORDERED: Lidocaine 1% MPF ** 5 ML VIAL ONE (15:16)
[2019-01-23] MEDS ORDERED: cefTRIAXone VIAL(*) 1,000 MG VIAL ONE (15:16)
[2019-01-23 15:26] VITALS: BP 131/78
== END 2019-01-23 15:30 | disposition home or self-care (01) ==
LOC: ED 13:37
DX: L03.211 Cellulitis of face (principal); K04.7 Periapical abscess without sinus; F32.9 Major depressive disorder, single episode, unspecified; F17.210 Nicotine dependence, cigarettes, uncomplicated; Z90.710 Acquired absence of both cervix and uterus
CPT/HCPCS: 36415; 70486; 80053; 84702; 85025; 86140; 96372; 99282; A9270-GY; J0696

== ENCOUNTER 2019-04-08 19:10 | Emergency (ER) | payer SELFPAY ==
[2019-04-08 19:21] VITALS: BP 154/90
--- NOTE | 2019-04-08 19:23 | UC ---
Throat Pain/Nasal Ronni HPI - HPI Summary HPI Summary: 54 yo female presents with sinus symptoms. She tells me that over the last week she has had sinus pain/pressure/congestion with post nasal drip. Over the last few days has had a right earache and popping. She has been taking mucinex and OTC cold medicine with no relief. Denies fever, chills, cough, SOB, n/v - History of Current Complaint Chief Complaint: UCGeneralIllness Stated Complaint: SINUS CONGESTION Time Seen by Provider: 04/08/19 19:22 Hx Obtained From: Patient Onset/Duration: Gradual Onset Severity: Moderate Pain Intensity: 6 Pain Scale Used: 0-10 Numeric - Allergies/Home Medications Allergies/Adverse Reactions: Allergies Allergy/AdvReac Type Severity Reaction Status Date / Time No Known Allergies Allergy Verified 04/08/19 19:23 Home Medications: Home Medications Guaifen/Phenyleph/Acetaminophn [Severe Sinus Congest-Pain Cplt] 2 each PO Q6H [History Confirmed 04/08/19] Ibuprofen TAB* [Motrin TAB* 800 MG] 800 mg PO ONCE 04/08/19 [History Confirmed 04/08/19] PMH/Surg Hx/FS Hx/Imm Hx - Additional Past Medical History Additional PMH: None - Surgical History Surgical History: Yes Surgery Procedure, Year, and Place: HYSTERECTOMY, LEFT SHOULDER FX - Family History Known Family History: Positive: Other - cancer - Social History Lives: With Family Alcohol Use: Rare Substance Use Type: None Smoking Status (MU): Light Every Day Tobacco Smoker Amount Used/How Often: a few cig per day - Immunization History Most Recent Influenza Vaccination: pt unable to recall Most Recent Tetanus Shot: pt unable to recall Most Recent Pneumonia Vaccination: none Review of Systems All Other Systems Reviewed And Are Negative: No Constitutional: Positive: Negative Skin: Positive: Negative Eyes: Positive: Negative ENT: Positive: Ear Ache, Nasal Discharge, Sinus Congestion, Sinus Pain/ Tenderness Respiratory: Positive: Negative Cardiovascular: Positive: Negative Gastrointestinal: Positive: Negative Neurological/Mental Status: Positive: Negative Psychological: Positive: Negative Physical Exam - Summary Physical Exam Summary: GENERAL: NAD. WDWN. No pain distress. SKIN: No rashes, sores, lesions, or open wounds. HEENT: Head: AT/NC Eyes: EOM intact. Conjunctiva clear without inflammation or discharge. Ears: Hearing grossly normal. TMs intact, no bulging, erythema, or edema. Nose: Nasal mucosa pink and moist without discharge. TTP maxillary and frontal sinus. Throat: Posterior oropharynx without exudates, erythema, or tonsillar enlargement. Uvula midline. NECK: Supple. Nontender. No lymphadenopathy. CHEST: CTAB. No r/r/w. No accessory muscle use. Breathing comfortably and in no distress. CV: RRR. Pulses intact. Cap refill <2seconds NEURO: Alert. PSYCH: Age appropriate behavior. Triage Information Reviewed: Yes Vital Signs: Initial Vital Signs Temp 97.9 F 04/08/19 19:17 Pulse 67 04/08/19 19:17 Resp 16 04/08/19 19:17 BP 154/90 04/08/19 19:17 Pulse Ox 100 04/08/19 19:17 Vital Signs Reviewed: Yes Throat Pain/Nasal Course/Dx - Course Course Of Treatment: Sinusitis - Differential Dx/Diagnosis Provider Diagnosis: Sinusitis Discharge ED - Sign-Out/Discharge Documenting (check all that apply): Patient Departure All imaging exams completed and their final reports reviewed: No Studies - Discharge Plan Condition: Stable Disposition: HOME Prescriptions: Amoxicillin PO (*) [Amoxicillin 875 MG (*)] 875 mg PO BID #14 tab Patient Education Materials: Sinusitis (ED) Referrals: No Primary Care Phys,NOPCP [Primary Care Provider] - Additional Instructions: If you develop a fever, shortness of breath, chest pain, new or worsening symptoms - please call your PCP or go to the ED immediately. Your blood pressure was high at todays visit. Please see your primary provider within 4 weeks for recheck and re-evaluation. - Billing Disposition and Condition Condition: STABLE Disposition: Home
== END 2019-04-08 19:35 | disposition home or self-care (01) ==
LOC: UCEAST 19:10
DX: J32.9 Chronic sinusitis, unspecified (principal); F17.210 Nicotine dependence, cigarettes, uncomplicated
CPT/HCPCS: 99212; G0463

== ENCOUNTER 2019-04-26 09:52 | Emergency (ER) | payer SELFPAY ==
[2019-04-26] MEDS ORDERED: Ondansetron INJ* 2 MG/ML VIAL IV ONE (11:12)
[2019-04-26] MEDS ORDERED: NS 0.9% 1000 ML** 1,000 ML IV ONE (11:12)
--- NOTE | 2019-04-26 11:14 | ED ---
Abdominal Pain/Female - HPI Summary HPI Summary: Pt. is a 54 y.o female who presents to the ER for vomiting, diarrhea and abd. pain since yesterday. 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 Notes epigastric pain. Denies cp, sob, fever. Sxs are moderate in severity. No current modifying factors. - History of Current Complaint Chief Complaint: EDNauseaVomitDiarrh Stated Complaint: NAUSEA/STOMACH CRAMPS PER PT Time Seen by Provider: 04/26/19 11:01 Hx Obtained From: Patient Pain Intensity: 8 Allergies/Adverse Reactions: Allergies Allergy/AdvReac Type Severity Reaction Status Date / Time No Known Allergies Allergy Verified 04/08/19 19:23 Home Medications: Home Medications Acetaminophen [Mapap] 1,000 mg PO TID PRN 01/23/19 [History Confirmed 04/26/19] Prochlorperazine 10 mg TAB [Compazine 10 mg TAB] 10 mg PO Q6H PRN #12 tab [Rx] PMH/Surg Hx/FS Hx/Imm Hx Previously Healthy: Yes Endocrine/Hematology History: Denies: Hx Diabetes, Hx Thyroid Disease Cardiovascular History: Reports: Other Cardiovascular Problems/Disorders - angina Denies: Hx Congestive Heart Failure, Hx Hypertension Respiratory History: Denies: Hx Asthma, Hx Chronic Obstructive Pulmonary Disease (COPD) GI History: Denies: Hx Ulcer History: Denies: Hx Renal Disease Sensory History: Reports: Hx Contacts or Glasses Opthamlomology History: Reports: Hx Contacts or Glasses Neurological History: Reports: Hx Migraine Psychiatric History: Reports: Hx Depression - Surgical History Surgery Procedure, Year, and Place: HYSTERECTOMY, LEFT SHOULDER FX - Immunization History Date of Influenza Vaccine: 11/2018 Infectious Disease History: No Infectious Disease History: Denies: Hx Hepatitis, Hx Human Immunodeficiency Virus (HIV), Hx of Known/ Suspected MRSA, Hx Shingles, Hx Tuberculosis, History Other Infectious Disease, Traveled Outside the [place] in Last 30 Days - Family History Known Family History: Positive: Other - cancer, Non-Contributory - Social History Occupation: Employed Full-time Lives: With Family Alcohol Use: Rare Hx Substance Use: No Substance Use Type: Reports: None Hx Tobacco Use: Yes Smoking Status (MU): Light Every Day Tobacco Smoker Amount Used/How Often: a few cig per day Review of Systems Constitutional: Negative Negative: Fever ENT: Negative Cardiovascular: Negative Respiratory: Negative Positive: Abdominal Pain, Vomiting, Diarrhea Genitourinary: Negative Neurological/Mental Status: Negative All Other Systems Reviewed And Are Negative: Yes Physical Exam Triage Information Reviewed: Yes Vital Signs On Initial Exam: Initial Vitals Temp Pulse Resp BP Pulse Ox 98.6 F 64 16 153/94 98 04/26/19 10:04 04/26/19 10:04 04/26/19 10:04 04/26/19 10:04 04/26/19 10:04 Vital Signs Reviewed: Yes Appearance: Positive: Well-Appearing Skin: Positive: Warm, Dry Head/Face: Positive: Normal Head/Face Inspection - Pt. lying in bed in NAD. Eyes: Positive: Normal, EOMI Neck: Positive: Supple Respiratory/Lung Sounds: Positive: Clear to Auscultation, Breath Sounds Present Cardiovascular: Positive: Normal, RRR Abdomen Description: Positive: Other: - Abd. is soft with epigastric tenderness. No guarding or rebound tenderness. Neurological: Positive: Normal, CN Intact II-III Psychiatric: Positive: Affect/Mood Appropriate Procedures - Sedation Patient Received Moderate/Deep Sedation with Procedure: No Diagnostics - Vital Signs Vital Signs Temp Pulse Resp BP Pulse Ox 04/26/19 11:06 64 160/95 98 04/26/19 11:02 57 188/84 98 04/26/19 11:00 68 98 04/26/19 10:04 98.6 F 64 16 153/94 98 - Laboratory Result Diagrams: 04/26/19 11:17 04/26/19 11:17 Lab Statement: Any lab studies that have been ordered have been reviewed, and results considered in the medical decision making process. Abdominal Pain Fem Course/Dx - Course Course Of Treatment: Pt. with V/D and abd. pain. Afebrile. Given iv fluids and zofran. ECG done at 1118 shows a sinus rhythm of 60bpm, normal axis, QTc mildly prolonged, no STEMI. Labs unremarkable other than mildly low K. On re- exam pt. feeling better. Tolerating POs. Susupect viral in nature. PO K given. DC home with compazine. WIll f.u with pcp and return to er if sxs chagne or worsen. - Diagnoses Differential Diagnosis: Positive: Appendicitis, Bowel Obstruction, Constipation , Diverticulitis Provider Diagnoses: Vomiting and diarrhea Discharge ED - Sign-Out/Discharge Documenting (check all that apply): Patient Departure - Discharge Plan Condition: Improved Disposition: HOME Prescriptions: Prochlorperazine 10 mg TAB [Compazine 10 mg TAB] 10 mg PO Q6H PRN #12 tab PRN Reason: Nausea Patient Education Materials: Gastroenteritis (ED), Kidney Cyst (ED) Forms: *Work Release Referrals: [facility] [Outside] [facility] [place] [place] [facility] [Outside] Additional Instructions: Schedule a follow up appointment with the [facility] if symptoms persist Nausea medication as directed Increase fluids Return to ER for uncontrollable vomiting, increased pain or if concerned - Billing Disposition and Condition Condition: IMPROVED Disposition: Home - Attestation Statements Provider Attestation: I was available for consultation for this patient. I did not evaluate the patient or participate in any medical decision making or disposition decisions unless I am specifically named in the chart as having consulted on the patient. If I have consulted on the patient, please see my own ED note on the patient encounter. Juanjo Fan MD
[2019-04-26 11:33] LABS: ABS Eosinophils 0.4 10^3/ul (0-0.6); ABS Lymphocytes 2.8 10^3/ul (1.0-4.8); ABS Monocytes 0.4 10^3/ul (0-0.8); ABS Neutrophils 2.9 10^3/ul (1.5-7.7); Eosinophil % 5.7 %; Hematocrit 35 % (35-47); Hemoglobin 12.3 g/dL (12.0-16.0); Lymphocyte % 42.5 %; Mean Corpuscular HGB Conc 35 g/dL (31-36); Mean Corpuscular Hemoglobin 33 pg (27-31); Mean Corpuscular Volume 93 fL (80-97); Mean Platelet Volume 7.8 fL (7.4-10.4); Nucleated Red Blood Cells % 0.2; Platelet Count 265 10^3/uL (150-450); Red Cell Distribution Width 13 % (10-15); White Blood Count 6.6 10^3/uL (3.5-10.8)
[2019-04-26 11:51] LABS: Troponin I 0.01 ng/mL (<0.03)
[2019-04-26 12:20] LABS: Albumin/Globulin Ratio 1.4 (1-3); BUN/Creatinine Ratio 18.9 (8-20); C Reactive Protein 1.65 mg/L (<8.01); Calcium 8.8 mg/dL (8.6-10.3); EGFR African American 98.2 (>60); EGFR Non-African American 81.2 (>60); Globulin 2.8 g/dL (2-4); Potassium 3.2 mmol/L (3.5-5.0); Total Bilirubin 0.4 mg/dL (0.2-1.0); Total Protein 6.8 g/dL (6.4-8.9)
[2019-04-26] MEDS ORDERED: Potassium Chlor TAB* 20 MEQ TAB.ER PO ONE (12:51)
[2019-04-26 13:49] VITALS: BP 163/83
== END 2019-04-26 13:49 | disposition home or self-care (01) ==
LOC: ED 09:52
DX: R11.10 Vomiting, unspecified (principal); R19.7 Diarrhea, unspecified; R10.13 Epigastric pain; N28.1 Cyst of kidney, acquired; F17.210 Nicotine dependence, cigarettes, uncomplicated
CPT/HCPCS: 36415; 76705; 80053; 83690; 84484; 85025; 86140; 93005; 96361; 96374; 99283; A9270-GY; J2405

== ENCOUNTER 2019-05-15 13:08 | Emergency (ER) | payer SELFPAY ==
--- NOTE | 2019-05-15 13:54 | ED ---
GI/ HPI - HPI Summary HPI Summary: This patient is a 54 year old female presenting to [facility] with a chief complaint of nausea/vomiting/diarrhea since yesterday morning. She states epigastric/LUQ pain. She states the pain is constant and rates it 6/10 in severity. She states lying supine alleviates the pain. She states she is unable to eat or drink. She states she had an elevated temp slightly over 100 degrees at home. She states she had a stomach bug a couple weeks ago. Her last BM was 3 hours ago. - History of Current Complaint Chief Complaint: EDNauseaVomitDiarrh Time Seen by Provider: 05/15/19 13:27 Stated Complaint: VOMITING,DIARRHEA,FEVER PER PT Hx Obtained From: Patient Onset/Duration: Started Days Ago Timing: Constant Pain Intensity: 6 Location of Pain: LUQ, Epigastric - Allergy/Home Medications Allergies/Adverse Reactions: Allergies Allergy/AdvReac Type Severity Reaction Status Date / Time No Known Allergies Allergy Verified 05/15/19 13:15 Home Medications: Home Medications Acetaminophen [Mapap] 1,000 mg PO TID PRN 01/23/19 [History Confirmed 04/26/19] Prochlorperazine 10 mg TAB [Compazine 10 mg TAB] 10 mg PO Q6H PRN #12 tab [Rx] PMH/Surg Hx/FS Hx/Imm Hx Endocrine/Hematology History: Denies: Hx Diabetes, Hx Thyroid Disease Cardiovascular History: Reports: Other Cardiovascular Problems/Disorders - angina Denies: Hx Congestive Heart Failure, Hx Hypertension Respiratory History: Denies: Hx Asthma, Hx Chronic Obstructive Pulmonary Disease (COPD) GI History: Denies: Hx Ulcer History: Denies: Hx Renal Disease Sensory History: Reports: Hx Contacts or Glasses Opthamlomology History: Reports: Hx Contacts or Glasses Neurological History: Reports: Hx Migraine Psychiatric History: Reports: Hx Depression - Surgical History Surgery Procedure, Year, and Place: HYSTERECTOMY, LEFT SHOULDER FX - Immunization History Date of Influenza Vaccine: 11/2018 Infectious Disease History: No Infectious Disease History: Denies: Hx Hepatitis, Hx Human Immunodeficiency Virus (HIV), Hx of Known/ Suspected MRSA, Hx Shingles, Hx Tuberculosis, History Other Infectious Disease, Traveled Outside the [place] in Last 30 Days - Family History Known Family History: Positive: Other - cancer - Social History Alcohol Use: Rare Hx Substance Use: No Substance Use Type: Reports: None Hx Tobacco Use: Yes Smoking Status (MU): Light Every Day Tobacco Smoker Amount Used/How Often: a few cig per day Review of Systems Positive: Fever Positive: Abdominal Pain, Vomiting, Nausea All Other Systems Reviewed And Are Negative: Yes Physical Exam - Summary Physical Exam Summary: Appearance: The patient is well-nourished in no acute distress and in no acute pain. Skin: The skin is warm and dry, and skin color reflects adequate perfusion. HEENT: The head is normocephalic and atraumatic. The pupils are equal and reactive. The conjunctivae are clear and without drainage. Nares are patent and without drainage. Mouth reveals moist mucous membranes, and the throat is without erythema and exudate. The external ears are intact. The ear canals are patent and without drainage. The tympanic membranes are intact. Neck: The neck is supple with full range of motion and non-tender. There are no carotid bruits. There is no neck vein distension. Respiratory: Chest is non-tender. Lungs are clear to auscultation and breath sounds are symmetrical and equal. Cardiovascular: Heart is regular rate and rhythm. There is no murmur or rub auscultated. There is no peripheral edema and pulses are symmetrical and equal. Abdomen: The abdomen is soft and non-tender. There are normal bowel sounds heard in all four quadrants and there is no organomegaly palpated. Musculoskeletal: There is no back tenderness noted. Extremities are non-tender with full range of motion. There is good capillary refill. There is no peripheral edema or calf tenderness elicited. Neurological: Patient is alert and oriented to person, place and time. The patient has symmetrical motor strength in all four extremities. Cranial nerves are grossly intact. Deep tendon reflexes are symmetrical and equal in all four extremities. Psychiatric: The patient has an appropriate affect and does not exhibit any anxiety or depression. Triage Information Reviewed: Yes Vital Signs On Initial Exam: Initial Vitals Temp Pulse Resp BP Pulse Ox 97.9 F 71 19 142/89 97 05/15/19 13:11 05/15/19 13:11 05/15/19 13:11 05/15/19 13:11 05/15/19 13:11 Vital Signs Reviewed: Yes Procedures - Sedation Patient Received Moderate/Deep Sedation with Procedure: No Diagnostics - Vital Signs Vital Signs Temp Pulse Resp BP Pulse Ox 05/15/19 13:11 97.9 F 71 19 142/89 97 - Laboratory Result Diagrams: 05/15/19 14:02 05/15/19 14:02 Lab Statement: Any lab studies that have been ordered have been reviewed, and results considered in the medical decision making process. GIGU Course/Dx - Course Course Of Treatment: Ms. Whitehead was treated symptomatically with here and felt better. She got a liter of fluid. Her labs are unremarkable. She was nontoxic in appearance with stable vitals - Diagnoses Provider Diagnoses: Abdominal pain Discharge ED - Sign-Out/Discharge Documenting (check all that apply): Patient Departure - Discharge - Discharge Plan Condition: Stable Disposition: HOME Patient Education Materials: Acute Abdominal Pain (ED) Referrals: Care [facility] [Outside] Additional Instructions: Return to ED with new or worsening symptoms. - Billing Disposition and Condition Condition: STABLE Disposition: Home - Attestation Statements Document Initiated by Libradoibe: Yes Documenting Scribe: Osvaldo Simms Provider For Whom Scribe is Documenting (Include Credential): Carlos Glez MD Scribe Attestation: Osvaldo Neri, scribed for Carlos Glez MD on 05/15/19 at 1720. Scribe Documentation Reviewed: Yes Provider Attestation: The documentation as recorded by the Osvaldo holt accurately reflects the service I personally performed and the decisions made by Carlos alvarado MD Status of Scribe Document: Viewed
[2019-05-15] MEDS ORDERED: NS 0.9% 1000 ML** 1,000 ML IV ONE (13:57)
[2019-05-15 14:29] LABS: ABS Eosinophils 0.2 10^3/ul (0-0.6); ABS Lymphocytes 1.6 10^3/ul (1.0-4.8); ABS Monocytes 0.3 10^3/ul (0-0.8); ABS Neutrophils 2.2 10^3/ul (1.5-7.7); Eosinophil % 4.7 %; Hematocrit 38 % (35-47); Hemoglobin 13.1 g/dL (12.0-16.0); Lymphocyte % 36.8 %; Mean Corpuscular HGB Conc 35 g/dL (31-36); Mean Corpuscular Hemoglobin 32 pg (27-31); Mean Corpuscular Volume 93 fL (80-97); Mean Platelet Volume 8.5 fL (7.4-10.4); Nucleated Red Blood Cells % 0.1; Platelet Count 231 10^3/uL (150-450); Red Blood Count 4.04 10^6 /uL (3.70-4.87); Red Cell Distribution Width 13 % (10-15); White Blood Count 4.3 10^3/uL (3.5-10.8)
[2019-05-15 14:49] LABS: ALT 7 U/L (7-52); AST 12 U/L (13-39); Albumin 3.9 g/dL (3.2-5.2); Albumin/Globulin Ratio 1.3 (1-3); Alkaline Phosphatase 77 U/L (34-104); Anion Gap 6 mmol/L (2-11); BUN/Creatinine Ratio 16.3 (8-20); Blood Urea Nitrogen 14 mg/dL (6-24); C Reactive Protein 16.09 mg/L (<8.01); CO2 Carbon Dioxide 27 mmol/L (22-32); Calcium 9.2 mg/dL (8.6-10.3); Chloride 104 mmol/L (101-111); EGFR African American 82.6 (>60); EGFR Non-African American 68.3 (>60); Glucose 94 mg/dL (70-100); Potassium 3.4 mmol/L (3.5-5.0); Sodium 137 mmol/L (135-145); Total Protein 6.9 g/dL (6.4-8.9)
[2019-05-15 16:50] LABS: Urine Appearance Cloudy; Urine Bilirubin Negative (Negative); Urine Blood 2+ (Negative); Urine Color Yellow; Urine Glucose Negative (Negative); Urine Ketones Trace (Negative); Urine Nitrite Negative (Negative); Urine Protein Negative (Negative); Urine Specific Gravity 1.009 (1.010-1.030); Urine Urobilinogen Negative (Negative)
[2019-05-15 17:15] LABS: Urine Bacteria Absent (Absent); Urine Red Blood Cell 2+(6-10/hpf) (Absent); Urine Squamous Epithelial Cell Present (Absent); Urine White Blood Cell Trace(0-5/hpf) (Absent)
[2019-05-15 17:16] VITALS: BP 164/78
== END 2019-05-15 17:15 | disposition home or self-care (01) ==
LOC: ED 13:08
DX: R10.9 Unspecified abdominal pain (principal); R19.7 Diarrhea, unspecified; R50.9 Fever, unspecified; R11.2 Nausea with vomiting, unspecified; F17.210 Nicotine dependence, cigarettes, uncomplicated
CPT/HCPCS: 36415; 80053; 81003; 81015; 83605; 83690; 85025; 86140; 87086; 99282

== ENCOUNTER 2019-06-08 08:02 | Emergency (ER) | payer OTHER ==
--- NOTE | 2019-06-08 08:21 | UC ---
Respiratory Complaint HPI - HPI Summary HPI Summary: The patient is a 54-year-old female that presents here with an 11 day history of nasal congestion, facial pressure and pain, postnasal drip, and cough. She states that for the past 24 hours feels as though she the cough is moved down into her chest. She feels tight and wheezy. Her cough is productive of greenish sputum. She denies any chest pain or shortness of breath. She denies any fever or chills. She works as a section housekeeper at our hospital. She is a smoker. - History of Current Complaint Chief Complaint: UCRespiratory Stated Complaint: CONGESTED Hx Obtained From: Patient Onset/Duration: Gradual Onset, Lasting Days Timing: Constant Severity Initially: Mild Severity Currently: Moderate Pain Intensity: 5 Pain Scale Used: 0-10 Numeric Character: Cough: Productive Aggravating Factors: Nothing Associated Signs And Symptoms: Positive: Nasal Congestion, Sinus Discomfort - Allergies/Home Medications Allergies/Adverse Reactions: Allergies Allergy/AdvReac Type Severity Reaction Status Date / Time No Known Allergies Allergy Verified 06/08/19 08:11 Home Medications: Home Medications Acetaminophen [Mapap] 1,000 mg PO TID PRN 01/23/19 [History Confirmed 06/08/19] Prochlorperazine 10 mg TAB [Compazine 10 mg TAB] 10 mg PO Q6H PRN #12 tab [Rx Confirmed 06/08/19] Albuterol HFA INHALER* [Ventolin HFA Inhaler*] 2 puff INH QID #1 mdi 06/08/19 [ Rx] Amoxicillin PO (*) [Amoxicillin 875 MG (*)] 875 mg PO BID #14 tab 06/08/19 [Rx] PMH/Surg Hx/FS Hx/Imm Hx Previously Healthy: Yes Respiratory History: Bronchitis - Surgical History Surgical History: Yes Surgery Procedure, Year, and Place: HYSTERECTOMY, LEFT SHOULDER FX - Family History Known Family History: Positive: Hypertension, Other - cancer - Social History Alcohol Use: None Substance Use Type: None Smoking Status (MU): Light Every Day Tobacco Smoker Amount Used/How Often: 1/2 ppd When Did the Patient Quit Smoking/Using Tobacco: few days Cessation Counseling: Patient Advised to Stop - Immunization History Most Recent Influenza Vaccination: pt unable to recall Most Recent Tetanus Shot: pt unable to recall Most Recent Pneumonia Vaccination: none Review of Systems All Other Systems Reviewed And Are Negative: Yes Constitutional: Positive: Negative Skin: Positive: Negative Eyes: Positive: Negative ENT: Positive: Nasal Discharge, Sinus Congestion, Sinus Pain/Tenderness Respiratory: Positive: Cough, Other - wheezing Cardiovascular: Positive: Negative Gastrointestinal: Positive: Negative Genitourinary: Positive: Negative Motor: Positive: Negative Neurovascular: Positive: Negative Musculoskeletal: Positive: Negative Neurological/Mental Status: Positive: Negative Psychological: Positive: Negative Physical Exam Triage Information Reviewed: Yes Appearance: Well-Appearing, No Pain Distress, Well-Nourished Vital Signs Reviewed: Yes Eyes: Positive: Conjunctiva Clear ENT: Positive: Hearing grossly normal, Nasal congestion, TMs normal, Sinus tenderness, Uvula midline. Negative: Nasal drainage, Muffled voice, Hoarse voice Dental Exam: Normal Neck: Positive: Supple, Nontender, No Lymphadenopathy Respiratory: Positive: Normal breath sounds, No respiratory distress, No accessory muscle use, Wheezing - with forced expiration only Cardiovascular: Positive: RRR, No Murmur Musculoskeletal: Positive: ROM Intact, No Edema Neurological: Positive: Alert Psychological Exam: Normal Skin Exam: Normal Respiratory Course/Dx - Differential Dx/Diagnosis Provider Diagnosis: Acute sinusitis, Bronchospasm, Educated about COVID-19 virus infection, Smoker , Elevated BP without diagnosis of hypertension Discharge ED - Sign-Out/Discharge Documenting (check all that apply): Patient Departure All imaging exams completed and their final reports reviewed: No Studies - Discharge Plan Condition: Stable Disposition: HOME Prescriptions: Albuterol HFA INHALER* [Ventolin HFA Inhaler*] 2 puff INH QID #1 mdi Amoxicillin PO (*) [Amoxicillin 875 MG (*)] 875 mg PO BID #14 tab Patient Education Materials: Sinusitis (ED), Bronchospasm (ED) Forms: COVID-19 Tested & Isolation Referrals: [facility] [Outside] - If Needed ( recheck in 4-12 weeks) Additional Instructions: you need to decrease or stop smoking you need to find a primary care provider to follow your BP influenza test negative covid 19 test pending rest fluids - Billing Disposition and Condition Condition: STABLE Disposition: Home
[2019-06-08 08:33] VITALS: BP 148/79
[2019-06-08 08:42] LABS: Influenza A Molecular Negative (Negative); Influenza B Molecular Negative (Negative)
== END 2019-06-08 09:13 | disposition home or self-care (01) ==
LOC: UCEAST 08:02
DX: J01.90 Acute sinusitis, unspecified (principal); J98.01 Acute bronchospasm; R03.0 Elevated blood-pressure reading, without diagnosis of hypertension; Z20.828 Contact with and (suspected) exposure to other viral communicable diseases; F17.200 Nicotine dependence, unspecified, uncomplicated
CPT/HCPCS: 87635; 99212; G0463; G2023